=== PATIENT | female | born 1965 | race Caucasian/White ===

== ENCOUNTER → 2017-04-11 | Outpatient (CLI) | payer OTHER ==
[~2017-04-11] MED LIST: CYCL-36 PO; HYDR-3533 PO; IBUP-232 PO; NAPR-571 PO
--- NOTE | 2017-04-11 10:33 | RADRPT ---
EXAM DATE/TIME: 04/11/2017 10:12 [place] COMPARISON: No previous studies available for comparison. INDICATIONS : Bronchitis, pain under right breast x 3 weeks. MEDICAL HISTORY : None. SURGICAL HISTORY : None. ENCOUNTER: Initial ACUITY: 3 weeks PAIN SCORE: 4/10 LOCATION: Right chest FINDINGS: PA and lateral views of the chest demonstrate the lungs to be symmetrically aerated without evidence of mass, infiltrate or effusion. The cardiomediastinal contours are unremarkable except for mildly t ortuous aorta. Osseous structures are intact. CONCLUSION: 1. No active disease. Tortuous aorta. Kp Otto MD on April 11, 2017 at 10:28 Board Certified Radiologist. This report was verified electronically.
== END ==
LOC: HRAD 09:54
DX: J40 Bronchitis, not specified as acute or chronic (principal)
CPT/HCPCS: 71020